=== PATIENT | female | born 1950 | race Caucasian/White ===

== ENCOUNTER 2021-03-24 11:59 | Emergency (ER) | payer OTHER ==
--- NOTE | 2021-03-24 15:37 | ER ---
Nurse's Notes [facility] Name: Saleem Blackwell Age: 70 yrs Sex: Female : 1950 Arrival Date: 03/24/2021 Time: 12:04 Bed Waiting Private MD: Jimbo Nagy B Diagnosis: Presentation: 03/24 13:02 Chief complaint: Patient states: Shortness of breath, nausea, VERDUGO, intermittent chest jl7 pressure x 2 days, denies chest pressure at this time. Coronavirus screen: Client denies travel out of the [place] in the last 14 days. At this time, the client does not indicate any symptoms associated with coronavirus-19. Ebola Screen: No symptoms or risks identified at this time. Initial Sepsis Screen: Does the patient meet any 2 criteria? No. Patient's initial sepsis screen is negative. Does the patient have a suspected source of infection? No. Patient's initial sepsis screen is negative. Risk Assessment: Do you want to hurt yourself or someone else? Patient reports no desire to harm self or others. Onset of symptoms was March 22, 2021. Care prior to arrival: None. 13:02 Method Of Arrival: Ambulatory jl7 13:02 Acuity: MOO 2 jl7 Historical: - Allergies: 13:18 No Known Allergies; jl7 - Home Meds: 13:18 rosuvastatin oral oral [Active]; ezetimibe oral oral [Active]; candesartan oral oral jl7 [Active]; - PMHx: 13:18 High Cholesterol; Hypertension; jl7 - Immunization history:: Adult Immunizations up to date, Client reports receiving the 2nd dose of the Covid vaccine, Date received: November 2020. - Social history:: Smoking status: Patient denies any tobacco usage or history of. Vital Signs: 13:02 BP 155 / 86; Pulse 85; Resp 15; Temp 96; Pulse Ox 97.9% ; Weight 67.59 kg; Height 5 ft. jl7 2 in. (157.48 cm); Pain 5/10; 13:02 Body Mass Index 27.25 (67.59 kg, 157.48 cm) jl7 ED Course: 12:04 Patient arrived in ED. mr 12:04 Jimbo Nagy MD is Private Physician. mr 13:16 Triage completed. jl7 13:18 Arm band placed on right wrist. Patient placed in waiting room, Patient notified of jl7 wait time. EKG completed in triage. Results shown to MD. Administered Medications: No medications were administered Outcome: 15:37 Patient left the ED. em1 Signatures: Brenda Wilkins Eric em1 Ivone March, RN RN jl7
[2021-03-24 15:41] VITALS: BP 155/86; TEMP 96
--- NOTE | 2021-03-25 11:57 | EKG ---
Test Date: 2021-03-24 Test Time: 13:15:29 Edi Architect: JUAN FRANCISCO MEASUREMENT RESULTS: Intervals: Rate: 95 LA: 126 QRSD: 74 QT: 370 QTc: 464 [place]: P: 9 LA: 126 QRS: 17 T: 48 INTERPRETIVE STATEMENTS: Normal sinus rhythm Normal ECG Compared to ECG 11/16/2017 09:55:01 No significant changes Electronically Signed On 03-25-21 11:54:02 CDT by Zacarias Frausto
== END 2021-03-24 15:37 | disposition left against medical advice (07) ==
LOC: ER 11:59
DX: R06.02 Shortness of breath (principal); R11.0 Nausea; R51.9 Headache, unspecified; R07.89 Other chest pain; Z53.21 Procedure and treatment not carried out due to patient leaving prior to being seen by health care provider; E78.00 Pure hypercholesterolemia, unspecified; I10 Essential (primary) hypertension
CPT/HCPCS: 93005; 99281

== ENCOUNTER 2021-11-09 08:24 | Emergency (ER) | payer OTHER ==
[2021-11-09 09:39] LABS: Urine Blood Trace-intact (Negative); Urine Glucose Negative (Negative); Urine Protein Trace (Negative); Urine pH 6.5 (5.0-7.0)
[2021-11-09 09:54] LABS: Absolute Lymphocytes (CBC) 2.1 K/uL (0.7-4.9); Hematocrit 43.7 % (36.0-45.0); Lymphocytes % 28.6 % (15.3-44.8); MPV 7.9 fL (7.6-11.3); RBC Red Blood Cell Count 5.32 M/uL (3.86-4.86)
[2021-11-09 09:55] LABS: Protime INR 0.99
[2021-11-09 10:09] LABS: Albumin 3.7 g/dL (3.4-5.0); Bilirubin Direct 0.2 mg/dL (0-0.2); Bilirubin Total 0.7 mg/dL (0.2-1.0); Potassium 4.2 mmol/L (3.5-5.1); Protein, Total 7.8 g/dL (6.4-8.2); Troponin High Sensitivity 6.9 pg/mL (<58.9)
--- NOTE | 2021-11-09 10:40 | RAD REPORT ---
EXAM DESCRIPTION: RAD - Chest Single View - 11/09/2021 10:28 am CLINICAL HISTORY: COUGH COMPARISON: No comparisons FINDINGS: Lines: None. Lungs: No evidence of edema or pneumonia. Pleural: No significant pleural effusions or pneumothorax. Cardiac: The heart size is within normal limits. Bones: No acute fractures. Other: IMPRESSION: No acute cardiopulmonary disease.
--- NOTE | 2021-11-09 10:56 | RAD REPORT ---
EXAM DESCRIPTION: CTAngio Aorta For Dissection - 11/09/2021 10:42 am CLINICAL HISTORY: Chest pain;PE;Dissection COMPARISON: No comparisons TECHNIQUE: CTA of the chest, abdomen, and pelvis was performed to evaluate the aorta. 3D reconstruct ions were performed. All CT scans are performed using dose optimization technique as appropriate and may include automated exposure control or mA/KV adjustment according to patient size. FINDINGS: Thorax: Chest Wall: No abnormal mass Lungs: No acute abnormality. Pleura: No effusions or pneumothorax. Cara/Mediastinum: No lymphadenopathy. Small hiatal hernia with mild circumferential thickened distal esophagus that may reflect mild esophagitis. Aorta/Pulmonary Arteries: Unremarkable Heart: Normal size. Abdomen/Pelvis: Liver: No acute abnormality or suspicious lesions. Biliary: Cholecystectomy. Extrahepatic biliary ductal dilatation is likely related to the postcholecy stectomy state. Stomach: No significant focal abnormality. Duodenum: No significant focal abnormality. Pancreas: No significant abnormality. Spleen: No significant abnormality. Adrenal: No suspicious lesions. Kidney/ureter: No hydronephrosis. No renal calculi. Too small to characterize and/or benign appearing renal lesions are noted. Retroperitoneum: No retroperitoneal adenopathy. Vascular: No aneurysm. Bowel: Diverticulosis without diverticulitis.. Peritoneum: No ascites or free air. Bladder: Grossly unremarkable. Reproductive: No adnexal masses. Bones: No acute fracture. Other: n/a IMPRESSION: No evidence of aortic aneurysm, aortic dissection, or pulmonary embolus. No alternate ac twenty[place]nine [place] process is identified. A few incidental findings are noted above.
[2021-11-09] MEDS ORDERED: PANTOPRAZOLE 40 MG INJ ONE (11:14)
--- NOTE | 2021-11-09 11:25 | ER ---
Nurse's Notes [facility] Name: Saleem Blackwell Age: 71 yrs Sex: Female : 1950 Arrival Date: 11/09/2021 Time: 08:25 Bed 30 Private MD: Jimbo Nagy B Diagnosis: Gastro-esophageal reflux disease with esophagitis;Strain of muscle and tendon of back wall of thorax;Unspecified symptoms and signs involving the musculoskeletal system-pain , strain Presentation: 11/09 08:44 Chief complaint: Patient states: L mid back pain for 3 days with higher than normal BP ll1 (176/100) at home. No fever. No N/V/D. Coronavirus screen: Vaccine status: Patient reports receiving the 2nd dose of the covid vaccine. Client denies travel out of the [place] in the last 14 days. At this time, the client does not indicate any symptoms associated with coronavirus-19. Ebola Screen: Patient denies travel to an Ebola-affected area in the 21 days before illness onset. Initial Sepsis Screen: Does the patient meet any 2 criteria? No. Patient's initial sepsis screen is negative. Does the patient have a suspected source of infection? No. Patient's initial sepsis screen is negative. Risk Assessment: Do you want to hurt yourself or someone else? Patient reports no desire to harm self or others. Onset of symptoms was November 07, 2021. 08:44 Acuity: MOO 3 ll1 08:44 Method Of Arrival: Ambulatory ll1 Historical: - Allergies: 08:44 No Known Allergies; ll1 - PMHx: 08:44 High Cholesterol; Hypertension; ll1 - PSHx: 08:47 Cholecystectomy; tubes tied; ll1 - Immunization history:: Client reports receiving the 2nd dose of the Covid vaccine, Flu vaccine is up to date. - Social history:: Smoking status: Patient denies any tobacco usage or history of. - Family history:: not pertinent. Screenin:41 Abuse screen: Denies threats or abuse. Denies injuries from another. Nutritional jh5 screening: No deficits noted. Tuberculosis screening: No symptoms or risk factors identified. Fall Risk None identified. Assessment: 09:01 General: Appears in no apparent distress. slender, well groomed, well developed, well jh5 nourished, Behavior is calm, cooperative, appropriate for age. Pain: Complains of pain in left back pain. Neuro: Level of Consciousness is awake, alert, obeys commands, Oriented to person, place, time, situation, Appropriate for age Moves all extremities. Full function Speech is normal. Vital Signs: 08:44 BP 159 / 76; Pulse 86; Resp 17; Temp 97.6; Pulse Ox 97% ; Weight 67.59 kg; Height 5 ft. ll1 2 in. (157.48 cm); Pain 4/10; 09:39 BP 149 / 72; Pulse 82; Resp 18; Pulse Ox 99% ; jh5 08:44 Body Mass Index 27.25 (67.59 kg, 157.48 cm) ll1 ED Course: 08:25 Patient arrived in ED. am2 08:26 Jimbo Nagy MD is Private Physician. am2 08:44 Arm band placed on. ll1 08:47 Triage completed. ll1 08:55 Polo Peralta MD is Attending Physician. [facility] 09:01 Radha Cameron RN is Primary Nurse. 5 09:40 Urine Culture Sent. jh5 09:40 Lipase Sent. jh5 09:40 Basic Metabolic Panel Sent. jh5 09:41 Patient has correct armband on for positive identification. Bed in low position. Call [facility] light in reach. Side rails up X 1. 09:41 No provider procedures requiring assistance completed. jh5 10:28 XRAY Chest (1 view) In Process Unspecified. EDMS 10:43 CT Aorta for Dissection In Process Unspecified. EDMS 11:23 Jimbo Nagy MD is Referral Physician. [facility] Administered Medications: 09:40 Drug: NS 0.9% 500 ml Route: IV; Rate: bolus; Site: right antecubital; [facility] 11:15 Drug: NS 0.9% 1000 ml Route: IV; Rate: 125 ml/hr; Site: right antecubital; [facility] 11:15 Drug: ProTONIX (pantoprazole) 40 mg Route: IVP; Site: right antecubital; [facility] Outcome: 11:25 Discharge ordered by . [facility] 11:26 Discharged to home [facility] 11:26 Condition: good 11:26 Discharge instructions given to patient. 11:35 Patient left the ED. [facility] Signatures: Dispatcher [employer] Polo He MD MD cha Moreno, Amanda am2 Lewis, Lynsay RN RN ll1 Radha Cameron RN RN jh5
--- NOTE | 2021-11-09 11:25 | EDPHYS ---
Physician Documentation [facility] Name: Saleem Blackwell Age: 71 yrs Sex: Female : 1950 Arrival Date: 11/09/2021 Time: 08:25 Bed 30 Private MD: Jimbo Nagy B ED Physician Polo Peralta HPI: 11/09 10:40 This 71 yrs old Female presents to ER via Ambulatory with complaints of Back nestor Pain - left side, High Blood Pressure. 10:40 This 71 yrs old Female presents to ER via Ambulatory with complaints of Back nestor Pain - left side, High Blood Pressure. 10:40 The patient presents with pain that is acute, with no known mechanism of injury. The nestor symptoms are located in the left subscapular area and left mid back. Onset: The symptoms/episode began/occurred 2 day(s) ago. The pain radiates. Associated signs and symptoms: Pertinent positives:. Modifying factors: The patient symptoms are alleviated by nothing, the patient symptoms are aggravated by any movement, coughing, supine position. Severity of symptoms: At their worst the symptoms were mild, in the emergency department the symptoms are unchanged. The patient has not experienced similar symptoms in the past. Historical: - Allergies: 08:44 No Known Allergies; ll1 - PMHx: 08:44 High Cholesterol; Hypertension; ll1 - PSHx: 08:47 Cholecystectomy; tubes tied; ll1 - Immunization history:: Client reports receiving the 2nd dose of the Covid vaccine, Flu vaccine is up to date. - Social history:: Smoking status: Patient denies any tobacco usage or history of. - Family history:: not pertinent. ROS: 10:40 Constitutional: Negative for fever, chills, and weight loss, Eyes: Negative for injury, nestor pain, redness, and discharge, ENT: Negative for injury, pain, and discharge, Neck: Negative for injury, pain, and swelling, Cardiovascular: Negative for chest pain, palpitations, and edema, Respiratory: Negative for shortness of breath, cough, wheezing, and pleuritic chest pain, Abdomen/GI: Negative for abdominal pain, nausea, vomiting, diarrhea, and constipation, : Negative for injury, bleeding, discharge, and swelling, MS/Extremity: Negative for injury and deformity, Skin: Negative for injury, rash, and discoloration, Neuro: Negative for headache, weakness, numbness, tingling, and seizure, Psych: Negative for depression, anxiety, suicide ideation, homicidal ideation, and hallucinations, Allergy/Immunology: Negative for hives, rash, and allergies, Endocrine: Negative for neck swelling, polydipsia, polyuria, polyphagia, and marked weight changes, Hematologic/Lymphatic: Negative for swollen nodes, abnormal bleeding, and unusual bruising. 10:40 Back: Positive for decreased range of motion, pain with movement, of the left subscapular area and left mid back. Exam: 10:40 Constitutional: This is a well developed, well nourished patient who is awake, alert, nestor and in no acute distress. Head/Face: Normocephalic, atraumatic. Eyes: Pupils equal round and reactive to light, extra-ocular motions intact. Lids and lashes normal. Conjunctiva and sclera are non-icteric and not injected. Cornea within normal limits. Periorbital areas with no swelling, redness, or edema. ENT: Nares patent. No nasal discharge, no septal abnormalities noted. Tympanic membranes are normal and external auditory canals are clear. Oropharynx with no redness, swelling, or masses, exudates, or evidence of obstruction, uvula midline. Mucous membranes moist. Neck: Trachea midline, no thyromegaly or masses palpated, and no cervical lymphadenopathy. Supple, full range of motion without nuchal rigidity, or vertebral point tenderness. No Meningismus. Chest/axilla: Normal chest wall appearance and motion. Nontender with no deformity. No lesions are appreciated. Cardiovascular: Regular rate and rhythm with a normal S1 and S2. No gallops, murmurs, or rubs. Normal PMI, no JVD. No pulse deficits. Respiratory: Lungs have equal breath sounds bilaterally, clear to auscultation and percussion. No rales, rhonchi or wheezes noted. No increased work of breathing, no retractions or nasal flaring. Abdomen/GI: Soft, non-tender, with normal bowel sounds. No distension or tympany. No guarding or rebound. No evidence of tenderness throughout. Female : Normal external genitalia. Skin: Warm, dry with normal turgor. Normal color with no rashes, no lesions, and no evidence of cellulitis. MS/ Extremity: Pulses equal, no cyanosis. Neurovascular intact. Full, normal range of motion. Neuro: Awake and alert, GCS 15, oriented to person, place, time, and situation. Cranial nerves II-XII grossly intact. Motor strength 5/5 in all extremities. Sensory grossly intact. Cerebellar exam normal. Normal gait. Psych: Awake, alert, with orientation to person, place and time. Behavior, mood, and affect are within normal limits. 10:40 Back: pain, that is mild, ROM is painful, with rotation to the right, with rotation to the left, with flexion, with extension, normal spinal alignment noted, CVA tenderness, is absent, vertebral tenderness, is not appreciated, muscle spasm, is not present, Straight leg raises: pain bilaterally. 11:16 ECG was reviewed by the Attending Physician. [facility] Vital Signs: 08:44 BP 159 / 76; Pulse 86; Resp 17; Temp 97.6; Pulse Ox 97% ; Weight 67.59 kg; Height 5 ft. ll1 2 in. (157.48 cm); Pain 4/10; 09:39 BP 149 / 72; Pulse 82; Resp 18; Pulse Ox 99% ; jh5 08:44 Body Mass Index 27.25 (67.59 kg, 157.48 cm) ll1 MDM: 09:12 Patient medically screened. [facility] 10:44 Differential diagnosis: Abdominal Aortic Aneurysm Basilar Pneumonia Fracture Leaking nestor Aortic Aneurysm Neoplasm Osteoarthritis Osteomalacia Osteomyelitis Osteoporosis ruptured disc, Scoliosis Ureterolithiasis. Data reviewed: vital signs, nurses notes, lab test result(s), EKG, radiologic studies, CT scan, plain films. Data interpreted: property assessment monitor: rate is 82 beats/min, rhythm is regular, Pulse oximetry: on room air is 99 %. Counseling: I had a detailed discussion with the patient and/or guardian regarding: the historical points, exam findings, and any diagnostic results supporting the discharge/admit diagnosis, lab results, radiology results, the need for outpatient follow up, for definitive care, 11/09 08: Order name: Basic Metabolic Panel [facility] 11/09 08:17 Order name: CBC with Diff; Complete Time: 10:32 [facility] 11/09 09:17 Order name: LFT's; Complete Time: 10:32 [facility] 11/09 09:17 Order name: Magnesium; Complete Time: 10:32 [facility] 11/09 08:17 Order name: NT PRO-BNP; Complete Time: 10:32 [facility] 11/09 09:17 Order name: PT-INR; Complete Time: 10:32 nestor 11/09 09:17 Order name: Troponin HS; Complete Time: 10:32 [facility] 11/09 09:17 Order name: XRAY Chest (1 view); Complete Time: 11:02 nestor 11/09 09:17 Order name: Lipase; Complete Time: 10:32 [facility] 11/09 09:17 Order name: Urine Culture 11/09 09:17 Order name: CT Aorta for Dissection; Complete Time: 11:02 [facility] 11/09 09:18 Order name: Basic Metabolic Panel; Complete Time: 10:32 EDMS 11/09 09:39 Order name: Urine Dipstick-Ancillary; Complete Time: 10:32 EDFL 11/09 09:17 Order name: Cardiac monitoring; Complete Time: 09:40 [facility] 11/09 09:17 Order name: EKG - Nurse/Tech; Complete Time: 09:39 nestor 11/09 09:17 Order name: IV Saline Lock; Complete Time: 09:40 [facility] 11/09 09:17 Order name: Labs collected and sent; Complete Time: 09:40 [facility] 11/09 09:17 Order name: O2 Per Protocol; Complete Time: 09:18 [facility] 11/09 09:17 Order name: O2 Sat Monitoring; Complete Time: 09:18 [facility] 11/09 09:17 Order name: Urine Dipstick-Ancillary (obtain specimen); Complete Time: 09:39 nestor EC:16 Rate is 76 beats/min. Rhythm is regular. QRS [place] is Normal. MS interval is normal. QRS nestor interval is normal. QT interval is normal. No Q waves. T waves are Normal. No ST changes noted. Clinical impression: NSR w/ Non-specific ST/T Changes and No evidence of ischemia. Interpreted by me. Reviewed by me. Administered Medications: 09:40 Drug: NS 0.9% 500 ml Route: IV; Rate: bolus; Site: right antecubital; jh5 11:15 Drug: NS 0.9% 1000 ml Route: IV; Rate: 125 ml/hr; Site: right antecubital; jh5 11:15 Drug: ProTONIX (pantoprazole) 40 mg Route: IVP; Site: right antecubital; jh5 Disposition Summary: 11/09/21 11:25 Discharge Ordered Location: Home [facility] Problem: new nestor Symptoms: have improved nestor Condition: Stable nestor Diagnosis - Gastro-esophageal reflux disease with esophagitis nestor - Strain of muscle and tendon of back wall of thorax nestor - Unspecified symptoms and signs involving the musculoskeletal system - pain , strain nestor Followup: [facility] - With: Jimbo Nagy MD - When: 2 - 3 days - Reason: Recheck today's complaints, Continuance of care, Re-evaluation by your physician Discharge Instructions: - Discharge Summary Sheet nestor - Acute Back Pain, Adult nestor - Food Choices for Gastroesophageal Reflux Disease, Adult nestor - Esophagitis nestor - Back Injury Prevention, Keea-cp-[id number] nestor - Gastroesophageal Reflux Disease, Adult, Pqga-[id number]-Naae nestor - Back Injury Prevention [facility] Forms: - Medication Reconciliation Form [facility] - Thank You Letter [facility] - Antibiotic Education [facility] - Prescription Opioid Use [facility] Prescriptions: - Protonix 40 mg Oral Tablet - take 1 tablet by ORAL route once daily; 30 tablet; Refills: 0, Product nestor Selection Permitted - Medrol (Jeremie) 4 mg Oral Tablets, Dose Pack - take 1 tablet by ORAL route as directed - follow package instructions; 1 nestor packet; Refills: 0, Product Selection Permitted - Motrin IB 200 mg Oral Tablet - take 2 tablet by ORAL route every 6 hours As needed as needed with food; 30 nestor tablet; Refills: 0, Product Selection Permitted - Tylenol-Codeine #3 300 mg-30 mg Oral - take 2 tablet by ORAL route Every night; 20 tablet; Refills: 0, Product nestor Selection Permitted Signatures: Dispatcher [employer] Polo He MD MD cha Lewis, Lynsay, RN RN ll1 Radha Cameron RN RN jh5
[2021-11-09 11:44] VITALS: TEMP 97.6
[2021-11-09 11:45] VITALS: BP 149/72; O2SAT 99
--- NOTE | 2021-11-11 07:31 | EKG ---
Test Date: 2021-11-09 Test Time: 09:25:12 Car Salesman: MEASUREMENT RESULTS: Intervals: Rate: 76 NC: 122 QRSD: 78 QT: 390 QTc: 438 [place]: P: 74 NC: 122 QRS: 33 T: 73 INTERPRETIVE STATEMENTS: Normal sinus rhythm Normal ECG Compared to ECG 03/24/2021 13:15:29 No significant changes Electronically Signed On 11-11-21 07:26:35 TEACHER AIDE by Zacarias Frausto
== END 2021-11-09 11:35 | disposition home or self-care (01) ==
LOC: ER 08:24
DX: K21.00 Gastro-esophageal reflux disease with esophagitis, without bleeding (principal); S29.012A Strain of muscle and tendon of back wall of thorax, initial encounter; I10 Essential (primary) hypertension
CPT/HCPCS: 93005; 87088; 85025; 87086; 80048; 36415; 83735; 85610; 80076; 81003; 84484; 83690; 83880; 71275; 74175; 71045; Q9967; C9113; 96374; 99283